=== PATIENT | female | born 1935 | race Caucasian/White ===

== ENCOUNTER 2016-05-29 11:45 | Inpatient (IN) | payer MEDICARE, MEDICAID ==
--- NOTE | 2016-05-29 12:32 | ED Physician Chart ---
Chief Complaint/HPI - Patient Information Date Seen:: 05/29/16 Time Seen:: 12:20 Chief Complaint:: cough and congestion History of Present Illness:: cough and congestion for 2-3 days. Sputum pale yellow. Allergies:: Allergies Allergy/AdvReac Type Severity Reaction Status Date / Time codeine Allergy UNKNOWN Verified 05/29/16 12:05 lithium Allergy UNKNOWN Verified 05/29/16 12:05 Penicillins [PCN] Allergy UNKNOWN Verified 05/29/16 12:05 Vitals:: Vital Signs - 8 hr 05/29/16 11:58 Temp 97.0 F HR 79 RR 18 BP 180/79 O2 Sat % 99 Historian:: Patient, EMS Review:: Nurse's Note Reviewed Review of Systems - Review of Systems General/Constitutional: No fever, No chills Skin: No skin lesions Head: No headache Eyes: No loss of vision ENT: No earache Neck: No neck pain Cardio Vascular: No chest pain Pulmonary: No SOB, Cough, Sputum GI: No nausea, No vomiting G/U: No dysuria Musculoskeletal: No bone or joint pain Endocrine: No polyuria, No polydipsia Psychiatric: No prior psych history Hematopoietic: No bruising Allergic/Immuno: No urticaria Neurological: No syncope Past Medical History - Past Medical History Obtainable: Yes Past Medical History: Seizures, Arthritis, Other (dysphagia; s/p UTI; arthritis ; insomnia; Parkinson's disease) Family History: HTN, Other (mother was an alcoholic and had hypertension) Social History: Non Smoker, Care Facility, Other (twenty or more years ago drank about 6 oz vodka per day for 4-5 years) Surgical History: other (pacemaker) Psychiatricy History: None Medication: Reviewed Family Medical History - Family Member Father History Unknown: Yes Physical Exam - Physical Examination General/Constitutional: Awake, No distress Other Gen/Cons comments:: A and O to correct month and year Head: Atraumatic Eyes: Lids, conjuctiva normal, PERRL Skin: Nl inspection ENMT: External ears, nose nl Other ENMT comments:: no lower teeth Neck: No nuchal rigidity Respiratory: Nl effort/Exclusion, Clear to Auscultation Cardio Vascular: RRR (2/6 systolic murmur) GI: No tenderness/rebounding/guarding, No organomegaly : No CVA tenderness Extremities: No tenderness or effusion Neuro/Psych: Alert/oriented, No focal deficits Other Neuro/Psych comments:: tremors right arm Misc: Normal back Labs/Radiology/EKG Results - Lab Results Results: Laboratory Results - last 24 hr 05/29/16 05/29/16 12:45 12:45 WBC 5.1 D RBC 3.79 L Hgb 12.8 Hct 36.7 MCV 97.0 MCH 33.9 H MCHC Differential 34.9 RDW 13.4 Plt Count 158 D MPV 7.9 Neutrophils (Manual) 41 Lymphocytes 52 H Monocytes 6 Eosinophils 1 Platelet Estimate ADEQUATE Platelet Morphology NORMAL RBC Morph Micro Appear NORMAL Sodium 135 L Potassium 4.3 Chloride 105 Carbon Dioxide 22.5 Anion Gap 11.8 BUN 16 Creatinine 0.8 Est GFR ( Amer) TNP Est GFR (Non-Af Amer) TNP BUN/Creatinine Ratio 20.0 Glucose 92 Calcium 9.7 - Radiology Results Results: CXR: pacemaker noted; no cardiomegaly; no infiltrate - EKG Interpretations Rhythm: ventricular pacemaker Rate: 75 ED Septic Shock - . Is Septic Shock (SBP<90, OR Lactate>4 mmol\L) present?: No - <6hrs of presentation: Vital Signs: Vital Signs - 8 hr 05/29/16 11:58 Temp 97.0 F HR 79 RR 18 BP 180/79 O2 Sat % 99 Reassessment (Disposition) - Reassessment Reassessment Condition:: Unchanged - Diagnosis Diagnosis:: exacerbation COPD; bronchitis; acute viral syndrome - Patient Disposition Admitted to:: Med/Surg Spoke to:: Andrés Stevens Admitting Medical Physician:: Andrés Stevens Condition at Disposition:: Stable, Unchanged
[2016-05-29 12:51] LABS: HEMATOCRIT 36.7 % (35.0-45.0); HEMOGLOBIN 12.8 gm/dL (11.7-16.1); MEAN CORPUSCULAR HEMOGLOBIN 33.9 pg (27.0-31.0); MEAN CORPUSCULAR HGB CONC 34.9 pg (28.0-36.0); MEAN PLATELET VOLUME 7.9 fl; RED BLOOD COUNT 3.79 Mil/cmm (3.80-5.20); RED CELL DISTRIBUTION WIDTH 13.4 % (11.5-20.0)
[2016-05-29 12:53] LABS: PLATELET COUNT 158 Th/cmm (150-400); WHITE BLOOD COUNT 5.1 Th/cmm (4.8-10.8)
[2016-05-29 13:14] LABS: ANION GAP 11.8 (7.0-16.0); BUN - UREA NITROGEN 16 mg/dL (7-25); CALCIUM SERUM 9.7 mg/dL (8.6-10.3); CARBON DIOXIDE 22.5 mEq/L (21.0-31.0); CHLORIDE 105 mEq/L (98-107); CREATININE - SERUM 0.8 mg/dL (0.6-1.2); GLUCOSE 92 mg/dL (70-105); POTASSIUM SERUM 4.3 mEq/L (3.5-5.1); SODIUM SERUM 135 mEq/L (136-145)
[2016-05-29 13:17] LABS: EOSINOPHIL 1 % (0-5); NEUTROPHILS 41 % (40-80); PLATELET ESTIMATE ADEQUATE (NORMAL); PLATELET MORPHOLOGY NORMAL (NORMAL); TOTAL CELLS COUNTED 100
[2016-05-29] MEDS ORDERED: Magnesium Hydroxide (MOM) 30 mL UDC PO PRN (14:32)
[2016-05-29] MEDS ORDERED: TEMAZEPAM 15 MG PO PRN (14:32)
[2016-05-29] MEDS ORDERED: guaiFENesin 200 MG/10 ML UDC PO PRN (14:35)
--- NOTE | 2016-05-29 14:41 | Internal Medicine Prog Note ---
Internal Medicine Subjective - Subjective Service Date: 05/29/16 ([facility] [id number]) Internal Medicine Objective - Results Result Diagrams: 05/29/16 12:45 05/29/16 12:45 Recent Labs: Laboratory Last Values WBC 5.1 Th/cmm (4.8-10.8) D 05/29/16 12:45 RBC 3.79 Mil/cmm (3.80-5.20) L 05/29/16 12:45 Hgb 12.8 gm/dL (11.7-16.1) 05/29/16 12:45 Hct 36.7 % (35.0-45.0) 05/29/16 12:45 MCV 97.0 fl (81-100) 05/29/16 12:45 MCH 33.9 pg (27.0-31.0) H 05/29/16 12:45 MCHC Differential 34.9 pg (28.0-36.0) 05/29/16 12:45 RDW 13.4 % (11.5-20.0) 05/29/16 12:45 Plt Count 158 Th/cmm (150-400) D 05/29/16 12:45 MPV 7.9 fl 05/29/16 12:45 Neutrophils (Manual) 41 % (40-80) 05/29/16 12:45 Lymphocytes 52 % (20-50) H 05/29/16 12:45 Monocytes 6 % (2-10) 05/29/16 12:45 Eosinophils 1 % (0-5) 05/29/16 12:45 Platelet Estimate ADEQUATE (NORMAL) 05/29/16 12:45 Platelet Morphology NORMAL (NORMAL) 05/29/16 12:45 RBC Morph Micro Appear NORMAL (NORMAL) 05/29/16 12:45 Sodium 135 mEq/L (136-145) L 05/29/16 12:45 Potassium 4.3 mEq/L (3.5-5.1) 05/29/16 12:45 Chloride 105 mEq/L (98-107) 05/29/16 12:45 Carbon Dioxide 22.5 mEq/L (21.0-31.0) 05/29/16 12:45 Anion Gap 11.8 (7.0-16.0) 05/29/16 12:45 BUN 16 mg/dL (7-25) 05/29/16 12:45 Creatinine 0.8 mg/dL (0.6-1.2) 05/29/16 12:45 Est GFR ( Amer) TNP 05/29/16 12:45 Est GFR (Non-Af Amer) TNP 05/29/16 12:45 BUN/Creatinine Ratio 20.0 05/29/16 12:45 Glucose 92 mg/dL (70-105) 05/29/16 12:45 Calcium 9.7 mg/dL (8.6-10.3) 05/29/16 12:45 Valproic Acid 72.3 ug/mL (50.0-100.0) 05/29/16 12:45 - Physical Exam Vitals and I&O: Vital Signs Temp 98 F 05/29/16 12:33 Pulse 88 05/29/16 12:33 Resp 16 05/29/16 12:33 BP 156/63 05/29/16 12:33 Pulse Ox 99 05/29/16 12:33 Active Medications: Current Medications Acetaminophen (Tylenol) 650 mg PO Q6H PRN PRN Reason: Pain Stop: 07/28/16 14:31 Acetaminophen/Hydrocodone Bitart ([place] 5mg/325mg) 1 tab PO Q6H PRN PRN Reason: body pain Stop: 07/28/16 14:31 Albuterol Sulfate (Albuterol 2.5mg/3ml Neb Ud) 2.5 mg IH QID [facility] Stop: 07/28/16 16:59 Amantadine HCl (Symmetrel) 100 mg PO DAILY [facility] Stop: 07/29/16 08:59 Ascorbic Acid (Vitamin C) 500 mg PO DAILY [facility] Stop: 07/29/16 08:59 Docusate Sodium (Colace) 100 mg PO BID [facility] Stop: 07/28/16 16:59 Ferrous Sulfate (Iron) 325 mg PO DAILY [facility] Stop: 07/29/16 08:59 Gabapentin (Neurontin) 300 mg PO QID [facility] Stop: 07/28/16 16:59 Guaifenesin (Robitussin) 100 mg PO Q4H PRN PRN Reason: Cough or Congestion Stop: 07/28/16 14:34 Hydralazine HCl (Apresoline) 25 mg PO TID [facility] Stop: 07/28/16 20:59 Ipratropium [place] (Atrovent Neb 0.5mg/2.5ml) 0.5 mg IH QID [facility] Stop: 07/28/16 16:59 Lorazepam (Ativan) 0.5 mg PO Q6H PRN; Protocol PRN Reason: Anxiety Stop: 07/28/16 14:31 Magnesium Hydroxide (Milk Of Magnesia) 30 ml PO DAILY PRN PRN Reason: Constipation Stop: 07/28/16 14:31 Miscellaneous (Dextran 70/Hypromellose [Artificial Tears]) 1 each EACH EYE QID [facility] Stop: 07/28/16 16:59 Miscellaneous (Valproic Acid [Depakene]) 500 mg PO TID [facility] Stop: 07/28/16 20:59 Miscellaneous (Tobramycin/Dexamethasone [Tobradex St Eye Drops]) 5 ml .ROUTE QID [facility] Stop: 07/28/16 16:59 Miscellaneous (Temazepam [Restoril]) 15 mg PO HS PRN PRN Reason: Insomnia Miscellaneous (Saccharomyces Boulardii [Florastor]) 250 mg PO BID [facility] Stop: 07/28/16 16:59 Ondansetron HCl (Zofran) 4 mg IV Q8H PRN PRN Reason: Nausea / Vomiting Stop: 07/28/16 14:34 Quetiapine Fumarate (Seroquel) 200 mg PO HS [facility] PRN Reason: Protocol Stop: 07/28/16 20:59 Internal Medicine Assmt/Plan - Assessment Assessment: copd exacerbation hyponatremia htn convulsions major depressive disorder
[2016-05-29] MEDS ORDERED: D5-0.9%NS 1,000 ML IV SCH (14:45)
[2016-05-29] MEDS ORDERED: Levofloxacin 500mg/100mL 500 MG/100 ML BAG IV SCH (15:15)
--- NOTE | 2016-05-29 15:40 | Diagnostic Imaging Report ---
Portable chest x-ray HISTORY: Cough The overall heart size is difficult to assess with portable technique. Cardiac pacemaker lead wires project over the right atrium and right ventricle. A vascular catheter tip is in the region of the superior vena cava. No definite acute focal pulmonary parenchymal processes. Surgical fixation plate traverses the right humeral shaft. IMPRESSION: 1. No acute focal pulmonary processes
[2016-05-29] MEDS ORDERED: VTE Chemical Prophylaxis Screen/Admission MC PRN (16:00)
[2016-05-29] MEDS ORDERED: Non-Formulary Item 1 EA (Dextran 70/Hypromellose [Artificial Tears] 1 EACH) EACH EYE SCH (17:00)
[2016-05-29] MEDS ORDERED: TOBRAMYCIN SCH (17:00)
[2016-05-29] MEDS ORDERED: Non-Formulary Item 1 EA (Saccharomyces Boulardii [Florastor] 250 MG) PO SCH (17:00)
[2016-05-29] MEDS ORDERED: DEXAMETHASONE SCH (17:00)
--- NOTE | 2016-05-29 17:37 | History & Physical ---
CHIEF COMPLAINT: Cough and congestion. HISTORY OF PRESENT ILLNESS: This is a 80-year-old female who is a resident from [facility] who has been having a 3-day history of cough and congestion associated with pale yellow secretion. The patient denied any fevers or any chills and denied any shortness of breath. For this reason, the patient is now admitted to the med/surg unit. PAST MEDICAL HISTORY: Hypertension, Parkinson, polyneuropathy, major depressive disorder, convulsion, muscle weakness, abnormal posture. FAMILY HISTORY: Noncontributory. SOCIAL HISTORY: The patient resides at a longterm, requiring 24-hour nursing care. ALLERGIES: CODEINE, LITHIUM AND PENICILLIN. SURGICAL HISTORY: Pacemaker and MediPort. MEDICATIONS: Please see medication reconciliation sheet. REVIEW OF SYSTEMS: GENERAL: Denies any fevers, any chills. CARDIOVASCULAR: Denies any chest pain. RESPIRATORY: Denies any shortness of breath, but complains of cough and congestion. GASTROINTESTINAL: Denies any nausea or vomiting. GENITOURINARY: Denies any dysuria. All other systems are reviewed by me and are negative. PHYSICAL EXAMINATION: GENERAL: The patient is awake with confusion in mild distress. VITAL SIGNS: Temperature 98, heart rate of 88, blood pressure 156/63, respirations 16, O2 99%. HEENT: Head; normocephalic, atraumatic. NECK: Supple. No mass. LUNGS: Rhonchi bilaterally upon auscultation. SKIN: Regular rate and rhythm. No murmurs or gallops. ABDOMEN: Soft, nontender, nondistended. Positive bowel sounds in all 4 quadrants. LABORATORY DATA: WBC 5.1, H and H 12.8 and 36.7, platelet of 150. Sodium 135, potassium 4.3, chloride 105, carbon dioxide 22.5, BUN 16, creatinine 0.8. Valproic acid 72.3. ASSESSMENT: 1. Chronic obstructive pulmonary disease exacerbation. 2. Hyponatremia. 3. Hypertension. 4. Major depressive disorder. 5. Convulsion. 6. Muscle weakness. PLAN: Since the patient is ALLERGIC TO PENICILLIN, the patient will be put on Levaquin, bronchodilators. We will monitor the patient's CBC and BMP. We will replace the patient's electrolytes levels. We will get Dr. Her on the case. We will continue to monitor the patient. [facility]# [id number]
[2016-05-29] MEDS: Hydrocodone/APAP 5mg/325mg Tab PO PRN ×2 (18:13→22:59)
[2016-05-29] MEDS: Dexamethasone/Tobramycin Ophth Susp 2.5 mL Bottle EACH EYE SCH (18:13)
[2016-05-29] MEDS: Polyvinyl Alcohol Ophth Soln 15 mL Bottle EACH EYE SCH ×3 (18:14→21:00)
[2016-05-29] MEDS: Ipratropium Neb 0.5 mg/2.5 mL UD IH SCH (19:15)
[2016-05-29] MEDS: Albuterol Nebulizer 2.5mg/3mL IH SCH (19:16)
[2016-05-29] MEDS ORDERED: VALPROIC ACID 500 MG PO SCH (21:00)
--- NOTE | 2016-05-30 00:09 | Admit Criteria Form ---
Admit Criteria Forms - Admit Criteria Diagnosis: COPD Clinical Indications for Admission to Inpatient Care (Place 'X' for any and all applicable criteria): Admission is indicated for ANY ONE of the following (1)(2)(3): [X ]I. Acute exacerbation by high-risk comorbidity (e.g., pneumonia, dysrhythmia, heart failure, pleural effusion, pneumothorax) or severe underlying COPD (e.g., steroid dependent) [ ]II. Inpatient admission required rather than observation care (see Chronic Obstructive Pulmonary Disease: Observation Care) because of ANY ONE of the following: [ ]a) New or pre-existing signs or symptoms of COPD (eg, dyspnea or Tachypnea at rest or with minimal activity) that persist despite outpatient and observation care treatment [ ]b) New-onset hypoxemia (room air SaO2 less than 90%, PO2 less than 60 mm Hg (8.0 kPa)) that persists despite outpatient and observation care treatment [ ]c) Worsening of pre-existing hypoxemia (eg, new or increased requirement for supplemental oxygen to maintain oxygenation at baseline level) that persists despite outpatient and observation care treatment, with oxygen treatment needs performable only in acute inpatient setting [ ]d) Hypercarbia (PCO2 greater than 40 mm Hg (5.3 kPa))-induced respiratory acidosis (pH less than 7.35) that persists despite outpatient and observation care treatment [ ]e) Supplemental oxygen or respiratory treatments for over 24 hours that are performable only in acute inpatient setting [ ]f) Chest tube placement with active evacuation (e.g., suction, drainage) (5) [ ]g) Other condition, treatment or monitoring requiring inpatient admission [ ]III. Planned invasive surgical or diagnostic procedures requiring acute- care hospitalization [ ]IV. Acute respiratory failure (e.g., uncompensated hypercarbia, severe hypoxemia) [ ]V. Severe comorbid condition (e.g., severe steroid myopathy, acute vertebral fracture) that has acutely worsened pulmonary function [ ]. Confusion state, lethargy, obtundation, stupor or coma Extended stay beyond goal length of stay may be needed for (31)(32): [ ]a ) Respiratory Failure. [ ]b) Severe or persisting hypoxemia or hypercarbia [ ]c) Severe or persistent dyspnea [ ]d) Comorbidities (e.g. chronic heart failure, atrial fibrillation with rapid response, pneumonia) [ ]e) Malnutrition The original [facility] content created by [facility] has been revised. The portions of the content which have been revised are identified through the use of italic text or in bold, and [facility] has neither reviewed nor approved the modified material. All other unmodified content is copyright [facility]. Please see references footnoted in the original [facility] edition 2016 Admit Criteria Met?: Yes
[2016-05-30] MEDS: Dexamethasone/Tobramycin Ophth Susp 2.5 mL Bottle EACH EYE SCH ×4 (00:11→20:00)
[2016-05-30] MEDS: Hydrocodone/APAP 5mg/325mg Tab PO PRN ×3 (05:56→20:00)
[2016-05-30 07:15] LABS: HEMOGLOBIN 11.1 gm/dL (11.7-16.1); MEAN CORPUSCULAR HEMOGLOBIN 33.7 pg (27.0-31.0); MEAN CORPUSCULAR HGB CONC 34.7 pg (28.0-36.0); MEAN PLATELET VOLUME 8.4 fl; PLATELET COUNT 156 Th/cmm (150-400); RED BLOOD COUNT 3.29 Mil/cmm (3.80-5.20); RED CELL DISTRIBUTION WIDTH 13.4 % (11.5-20.0); WHITE BLOOD COUNT 5.5 Th/cmm (4.8-10.8)
[2016-05-30] MEDS: Albuterol Nebulizer 2.5mg/3mL IH SCH ×2 (07:17→11:19)
[2016-05-30] MEDS: Ipratropium Neb 0.5 mg/2.5 mL UD IH SCH ×3 (07:18→11:22)
[2016-05-30 07:35] LABS: HEMATOCRIT 31.9 % (35.0-45.0)
[2016-05-30 07:43] LABS: ANION GAP 10.6 (7.0-16.0); BUN - UREA NITROGEN 14 mg/dL (7-25); CALCIUM SERUM 9.5 mg/dL (8.6-10.3); CARBON DIOXIDE 25.4 mEq/L (21.0-31.0); CHLORIDE 102 mEq/L (98-107); GLUCOSE 88 mg/dL (70-105); SODIUM SERUM 134 mEq/L (136-145)
[2016-05-30] MEDS: Polyvinyl Alcohol Ophth Soln 15 mL Bottle EACH EYE SCH ×3 (09:15→22:02)
[2016-05-30] MEDS: Multivitamin w/ Minerals Tab PO SCH (09:15)
[2016-05-30] MEDS: Lactobacillus Rhamnosus 10 Billion CFU Capsule PO SCH (09:16)
[2016-05-30] MEDS: Ferrous Sulfate 325 MG TAB PO SCH (09:18)
--- NOTE | 2016-05-30 09:40 | Diagnostic Imaging Report ---
CHEST X-RAY: AP view INDICATION: Shortness of breath COMPARISON: Chest x-ray 05/29/2016 FINDINGS: Support devices are stable. No focal consolidation, effusions or evidence of stephanie CHF. Left basal subsegmental atelectasis versus scarring is noted. Borderline prominent heart is noted with atherosclerosis. IMPRESSION: No focal consolidation or radiographic evidence of CHF Left basal subsegmental atelectasis versus scarring.
[2016-05-30 10:06] LABS: NEUTROPHILS 23 % (40-80); TOTAL CELLS COUNTED 100
[2016-05-30 10:07] LABS: EOSINOPHIL 2 % (0-5); PLATELET ESTIMATE ADEQUATE (NORMAL); PLATELET MORPHOLOGY NORMAL (NORMAL)
--- NOTE | 2016-05-30 13:02 | Internal Medicine Prog Note ---
Internal Medicine Subjective - Subjective Service Date: 05/30/16 Patient seen and examined:: with staff Patient is:: awake Per staff patient is:: no adverse event Internal Medicine Objective - Results Result Diagrams: 05/30/16 06:00 05/30/16 06:00 Recent Labs: Laboratory Last Values WBC 5.5 Th/cmm (4.8-10.8) 05/30/16 06:00 RBC 3.29 Mil/cmm (3.80-5.20) L 05/30/16 06:00 Hgb 11.1 gm/dL (11.7-16.1) L 05/30/16 06:00 Hct 31.9 % (35.0-45.0) L D 05/30/16 06:00 MCV 97.0 fl (81-100) 05/30/16 06:00 MCH 33.7 pg (27.0-31.0) H 05/30/16 06:00 MCHC Differential 34.7 pg (28.0-36.0) 05/30/16 06:00 RDW 13.4 % (11.5-20.0) 05/30/16 06:00 Plt Count 156 Th/cmm (150-400) 05/30/16 06:00 MPV 8.4 fl 05/30/16 06:00 Neutrophils (Manual) 23 % (40-80) L 05/30/16 06:00 Lymphocytes 69 % (20-50) H 05/30/16 06:00 Monocytes 6 % (2-10) 05/30/16 06:00 Eosinophils 2 % (0-5) 05/30/16 06:00 Platelet Estimate ADEQUATE (NORMAL) 05/30/16 06:00 Platelet Morphology NORMAL (NORMAL) 05/30/16 06:00 RBC Morph Micro Appear NORMAL (NORMAL) 05/30/16 06:00 Sodium 134 mEq/L (136-145) L 05/30/16 06:00 Potassium 4.0 mEq/L (3.5-5.1) 05/30/16 06:00 Chloride 102 mEq/L (98-107) 05/30/16 06:00 Carbon Dioxide 25.4 mEq/L (21.0-31.0) 05/30/16 06:00 Anion Gap 10.6 (7.0-16.0) 05/30/16 06:00 BUN 14 mg/dL (7-25) 05/30/16 06:00 Creatinine 1.0 mg/dL (0.6-1.2) 05/30/16 06:00 Est GFR ( Amer) TNP 05/30/16 06:00 Est GFR (Non-Af Amer) TNP 05/30/16 06:00 BUN/Creatinine Ratio 14.0 05/30/16 06:00 Glucose 88 mg/dL (70-105) 05/30/16 06:00 Calcium 9.5 mg/dL (8.6-10.3) 05/30/16 06:00 Valproic Acid 72.3 ug/mL (50.0-100.0) 05/29/16 12:45 - Physical Exam Vitals and I&O: Vital Signs Temp 97.4 F 05/30/16 12:17 Pulse 62 05/30/16 12:17 Resp 19 05/30/16 08:12 BP 133/64 05/30/16 12:17 Pulse Ox 18 05/30/16 12:17 Intake & Output 05/29/16 05/30/16 05/30/16 18:59 06:59 18:59 Intake Total 700 Balance 700 Intake: Intake, IV Amount 100 Levofloxacin 500mg/100mL 100 500 mg In 100 ml @ 100 mls/hr IV Q24HR [facility] Rx#: [id number] Oral 600 Other: # Voids 1 Active Medications: Current Medications Acetaminophen (Tylenol) 650 mg PO Q4HR PRN PRN Reason: Pain or Fever >101 Stop: 07/28/16 14:42 Last Admin: 05/30/16 09:11 Dose: 650 mg Acetaminophen/Hydrocodone Bitart ([place] 5mg/325mg) 1 tab PO Q6H PRN PRN Reason: body pain Stop: 07/28/16 14:31 Last Admin: 05/30/16 11:54 Dose: 1 tab Albuterol Sulfate (Albuterol 2.5mg/3ml Neb Ud) 2.5 mg IH QID [facility] Stop: 07/28/16 16:59 Last Admin: 05/30/16 11:19 Dose: Not Given Amantadine HCl (Symmetrel) 100 mg PO DAILY [facility] Stop: 07/29/16 08:59 Last Admin: 05/30/16 09:17 Dose: 100 mg Artificial Tears (Artificial Tears Ophth Soln) 1 drop EACH EYE QID [facility] Stop: 07/28/16 16:59 Last Admin: 05/30/16 09:15 Dose: 1 drop Ascorbic Acid (Vitamin C) 500 mg PO DAILY [facility] Stop: 07/29/16 08:59 Last Admin: 05/30/16 09:17 Dose: Not Given Clonidine HCl (Catapres) 0.1 mg PO Q6HR PRN PRN Reason: SBP GREATER THAN 160 Stop: 07/28/16 14:42 Divalproex Sodium (Depakote Dr) 500 mg PO TID [facility] Stop: 07/28/16 20:59 Last Admin: 05/30/16 09:16 Dose: 500 mg Docusate Sodium (Colace) 100 mg PO BID [facility] Stop: 07/28/16 16:59 Last Admin: 05/30/16 09:17 Dose: 100 mg Ferrous Sulfate (Iron) 325 mg PO DAILY [facility] Stop: 07/29/16 08:59 Last Admin: 05/30/16 09:18 Dose: 325 mg Gabapentin (Neurontin) 300 mg PO QID [facility] Stop: 07/28/16 16:59 Last Admin: 05/30/16 09:18 Dose: 300 mg Guaifenesin (Robitussin) 100 mg PO Q4H PRN PRN Reason: Cough or Congestion Stop: 07/28/16 14:34 Heparin Sodium (Porcine) (Heparin) 5,000 units SUBQ Q12HR [facility] Stop: 07/28/16 20:59 Last Admin: 05/30/16 09:16 Dose: Not Given Hydralazine HCl (Apresoline) 25 mg PO TID [facility] Stop: 07/28/16 20:59 Last Admin: 05/30/16 09:16 Dose: Not Given Dextrose/Sodium Chloride (D5-0.9%Ns) 1,000 mls @ 50 mls/hr IV .Q20H [facility] Stop: 07/28/16 14:44 Last Admin: 05/29/16 18:12 Dose: 50 mls/hr Ipratropium Hospers (Atrovent Neb 0.5mg/2.5ml) 0.5 mg IH QID [facility] Stop: 07/28/16 16:59 Last Admin: 05/30/16 11:22 Dose: Not Given Lactobacillus Rhamnosus (Culturelle) 1 each PO DAILY [facility] Stop: 07/29/16 08:59 Last Admin: 05/30/16 09:16 Dose: Not Given Lorazepam (Ativan) 0.5 mg PO Q6H PRN; Protocol PRN Reason: Anxiety Stop: 07/28/16 14:31 Last Admin: 05/29/16 23:52 Dose: 0.5 mg Magnesium Hydroxide (Milk Of Magnesia) 30 ml PO DAILY PRN PRN Reason: Constipation Stop: 07/28/16 14:31 Miscellaneous (Vte [employer] Prophylaxis Screen/ Admission) 1 ea [facility] PRN PRN PRN Reason: PROTOCOL Stop: 07/28/16 15:59 Ondansetron HCl (Zofran) 4 mg IV Q8H PRN PRN Reason: Nausea / Vomiting Stop: 07/28/16 14:34 Quetiapine Fumarate (Seroquel) 200 mg PO HS [facility] PRN Reason: Protocol Stop: 07/28/16 20:59 Last Admin: 05/29/16 20:31 Dose: 200 mg Sertraline HCl (Zoloft) 25 mg PO DAILY [facility] PRN Reason: Protocol Stop: 07/30/16 08:59 Sodium Chloride (Saline Flush) 10 ml IV QSHIFT [facility] Stop: 07/28/16 19:59 Last Admin: 05/30/16 10:58 Dose: Not Given Temazepam (Restoril) 15 mg PO HS PRN PRN Reason: SLEEP Stop: 07/28/16 15:23 Last Admin: 05/29/16 22:59 Dose: 15 mg Tobramycin/Dexamethasone (Tobradex 0.1%-0.3% Ophth Susp 2.5ml) 1 drop EACH EYE QID [facility] Stop: 07/28/16 16:59 Last Admin: 05/30/16 09:16 Dose: 1 drop General: alert Neck: Supple Lungs: CTAB Cardiovascular: RRR, Normal S1, Normal S2, without murmur Abdomen: soft non-tender Neurological: no change Internal Medicine Assmt/Plan - Assessment Assessment: copd exacerbation hyponatremia htn convulsions major depressive disorder - Plan Plan: dc elmer cason
[2016-05-31] MEDS: Hydrocodone/APAP 5mg/325mg Tab PO PRN ×3 (06:05→18:34)
[2016-05-31] MEDS: Ipratropium Neb 0.5 mg/2.5 mL UD HHN SCH ×5 (08:26→19:28)
[2016-05-31] MEDS: Albuterol Nebulizer 2.5mg/3mL HHN SCH ×4 (08:26→19:28)
[2016-05-31] MEDS: Dexamethasone/Tobramycin Ophth Susp 2.5 mL Bottle EACH EYE SCH ×5 (08:59→21:05)
[2016-05-31] MEDS: Polyvinyl Alcohol Ophth Soln 15 mL Bottle EACH EYE SCH ×4 (09:00→21:05)
[2016-05-31] MEDS: Multivitamin w/ Minerals Tab PO SCH (09:01)
[2016-05-31] MEDS: Ferrous Sulfate 325 MG TAB PO SCH (09:01)
[2016-05-31] MEDS: Lactobacillus Rhamnosus 10 Billion CFU Capsule PO SCH (09:01)
--- NOTE | 2016-05-31 16:50 | Internal Medicine Prog Note ---
Internal Medicine Subjective - Subjective Service Date: 05/31/16 Patient seen and examined:: with staff Patient is:: awake Per staff patient is:: no adverse event Internal Medicine Objective - Results Result Diagrams: 05/30/16 06:00 05/30/16 06:00 Recent Labs: Laboratory Last Values WBC 5.5 Th/cmm (4.8-10.8) 05/30/16 06:00 RBC 3.29 Mil/cmm (3.80-5.20) L 05/30/16 06:00 Hgb 11.1 gm/dL (11.7-16.1) L 05/30/16 06:00 Hct 31.9 % (35.0-45.0) L D 05/30/16 06:00 MCV 97.0 fl (81-100) 05/30/16 06:00 MCH 33.7 pg (27.0-31.0) H 05/30/16 06:00 MCHC Differential 34.7 pg (28.0-36.0) 05/30/16 06:00 RDW 13.4 % (11.5-20.0) 05/30/16 06:00 Plt Count 156 Th/cmm (150-400) 05/30/16 06:00 MPV 8.4 fl 05/30/16 06:00 Neutrophils (Manual) 23 % (40-80) L 05/30/16 06:00 Lymphocytes 69 % (20-50) H 05/30/16 06:00 Monocytes 6 % (2-10) 05/30/16 06:00 Eosinophils 2 % (0-5) 05/30/16 06:00 Platelet Estimate ADEQUATE (NORMAL) 05/30/16 06:00 Platelet Morphology NORMAL (NORMAL) 05/30/16 06:00 RBC Morph Micro Appear NORMAL (NORMAL) 05/30/16 06:00 Sodium 134 mEq/L (136-145) L 05/30/16 06:00 Potassium 4.0 mEq/L (3.5-5.1) 05/30/16 06:00 Chloride 102 mEq/L (98-107) 05/30/16 06:00 Carbon Dioxide 25.4 mEq/L (21.0-31.0) 05/30/16 06:00 Anion Gap 10.6 (7.0-16.0) 05/30/16 06:00 BUN 14 mg/dL (7-25) 05/30/16 06:00 Creatinine 1.0 mg/dL (0.6-1.2) 05/30/16 06:00 Est GFR ( Amer) TNP 05/30/16 06:00 Est GFR (Non-Af Amer) TNP 05/30/16 06:00 BUN/Creatinine Ratio 14.0 05/30/16 06:00 Glucose 88 mg/dL (70-105) 05/30/16 06:00 Calcium 9.5 mg/dL (8.6-10.3) 05/30/16 06:00 Valproic Acid 72.3 ug/mL (50.0-100.0) 05/29/16 12:45 - Physical Exam Vitals and I&O: Vital Signs Temp 98.2 F 05/31/16 11:50 Pulse 79 05/31/16 13:29 Resp 17 05/31/16 11:50 BP 124/69 05/31/16 13:29 Pulse Ox 96 05/31/16 11:50 Active Medications: Current Medications Acetaminophen (Tylenol) 650 mg PO Q4HR PRN PRN Reason: Pain or Fever >101 Stop: 07/28/16 14:42 Last Admin: 05/31/16 16:04 Dose: 650 mg Acetaminophen/Hydrocodone Bitart ([place] 5mg/325mg) 1 tab PO Q6H PRN PRN Reason: body pain Stop: 07/28/16 14:31 Last Admin: 05/31/16 12:33 Dose: 1 tab Albuterol Sulfate (Albuterol 2.5mg/3ml Neb Ud) 2.5 mg HHN QID [facility] Stop: 07/28/16 16:59 Last Admin: 05/31/16 15:16 Dose: Not Given Amantadine HCl (Symmetrel) 100 mg PO DAILY [facility] Stop: 07/29/16 08:59 Last Admin: 05/31/16 08:54 Dose: 100 mg Artificial Tears (Artificial Tears Ophth Soln) 1 drop EACH EYE QID [facility] Stop: 07/28/16 16:59 Last Admin: 05/31/16 16:45 Dose: Not Given Ascorbic Acid (Vitamin C) 500 mg PO DAILY [facility] Stop: 07/29/16 08:59 Last Admin: 05/31/16 09:00 Dose: Not Given Azithromycin (Zithromax) 500 mg PO DAILY [facility] Stop: 06/02/16 09:01 Last Admin: 05/31/16 08:53 Dose: 500 mg Clonidine HCl (Catapres) 0.1 mg PO Q6HR PRN PRN Reason: SBP GREATER THAN 160 Stop: 07/28/16 14:42 Divalproex Sodium (Depakote Dr) 500 mg PO TID [facility] Stop: 07/28/16 20:59 Last Admin: 05/31/16 13:29 Dose: 500 mg Docusate Sodium (Colace) 100 mg PO BID [facility] Stop: 07/28/16 16:59 Last Admin: 05/31/16 16:44 Dose: 100 mg Ferrous Sulfate (Iron) 325 mg PO DAILY [facility] Stop: 07/29/16 08:59 Last Admin: 05/31/16 09:01 Dose: Not Given Gabapentin (Neurontin) 300 mg PO QID [facility] Stop: 07/28/16 16:59 Last Admin: 05/31/16 16:44 Dose: 300 mg Guaifenesin (Robitussin) 100 mg PO Q4H PRN PRN Reason: Cough or Congestion Stop: 07/28/16 14:34 Last Admin: 05/30/16 22:24 Dose: 100 mg Heparin Sodium (Porcine) (Heparin) 5,000 units SUBQ Q12HR [facility] Stop: 07/28/16 20:59 Last Admin: 05/31/16 08:42 Dose: 5,000 units Hydralazine HCl (Apresoline) 25 mg PO TID [facility] Stop: 07/28/16 20:59 Last Admin: 05/31/16 13:29 Dose: 25 mg Dextrose/Sodium Chloride (D5-0.9%Ns) 1,000 mls @ 50 mls/hr IV .Q20H [facility] Stop: 07/28/16 14:44 Last Admin: 05/29/16 18:12 Dose: 50 mls/hr Ipratropium [place] (Atrovent Neb 0.5mg/2.5ml) 0.5 mg HHN QID [facility] Stop: 07/28/16 16:59 Last Admin: 05/31/16 15:17 Dose: Not Given Lactobacillus Rhamnosus (Culturelle) 1 each PO DAILY [facility] Stop: 07/29/16 08:59 Last Admin: 05/31/16 09:01 Dose: Not Given Lorazepam (Ativan) 0.5 mg PO Q6H PRN; Protocol PRN Reason: Anxiety Stop: 07/28/16 14:31 Last Admin: 05/30/16 22:12 Dose: 0.5 mg Magnesium Hydroxide (Milk Of Magnesia) 30 ml PO DAILY PRN PRN Reason: Constipation Stop: 07/28/16 14:31 Miscellaneous (Vte Chemical Prophylaxis Screen/ Admission) 1 ea [facility] PRN PRN PRN Reason: PROTOCOL Stop: 07/28/16 15:59 Mupirocin (Bactroban Oint) 1 appl NS BID [facility] Stop: 06/05/16 17:01 Ondansetron HCl (Zofran) 4 mg IV Q8H PRN PRN Reason: Nausea / Vomiting Stop: 07/28/16 14:34 Quetiapine Fumarate (Seroquel) 200 mg PO HS [facility] PRN Reason: Protocol Stop: 07/28/16 20:59 Last Admin: 05/30/16 22:03 Dose: 200 mg Sertraline HCl (Zoloft) 25 mg PO DAILY [facility] PRN Reason: Protocol Stop: 07/30/16 08:59 Last Admin: 05/31/16 08:52 Dose: 25 mg Sodium Chloride (Saline Flush) 10 ml IV QSHIFT [facility] Stop: 07/28/16 19:59 Last Admin: 05/31/16 09:00 Dose: Not Given Temazepam (Restoril) 15 mg PO HS PRN PRN Reason: SLEEP Stop: 07/28/16 15:23 Last Admin: 05/29/16 22:59 Dose: 15 mg Tobramycin/Dexamethasone (Tobradex 0.1%-0.3% Ophth Susp 2.5ml) 1 drop EACH EYE QID [facility] Stop: 07/28/16 16:59 Last Admin: 05/31/16 16:45 Dose: 1 drop General: alert HEENT: NC/AT, PERRLA Neck: Supple Lungs: CTAB Cardiovascular: RRR, Normal S1, Normal S2, without murmur Abdomen: soft non-tender Internal Medicine Assmt/Plan - Assessment Assessment: copd exacerbation hyponatremia htn convulsions major depressive disorder - Plan Plan: TRANSFER TO [facility] WHEN BED AVAILABLE
[2016-06-01 05:43] LABS: HEMATOCRIT 34.6 % (35.0-45.0); HEMOGLOBIN 11.8 gm/dL (11.7-16.1); MEAN CELL VOLUME 98.1 fl (81-100); MEAN CORPUSCULAR HEMOGLOBIN 33.5 pg (27.0-31.0); MEAN CORPUSCULAR HGB CONC 34.2 pg (28.0-36.0); MEAN PLATELET VOLUME 8.1 fl; PLATELET COUNT 168 Th/cmm (150-400); RED BLOOD COUNT 3.53 Mil/cmm (3.80-5.20); RED CELL DISTRIBUTION WIDTH 13.3 % (11.5-20.0)
[2016-06-01 06:00] LABS: ANION GAP 9.5 (7.0-16.0); BUN - UREA NITROGEN 19 mg/dL (7-25); BUN/CREATININE RATIO 23.8; CALCIUM SERUM 9.4 mg/dL (8.6-10.3); CHLORIDE 100 mEq/L (98-107); CREATININE - SERUM 0.8 mg/dL (0.6-1.2); GLUCOSE 92 mg/dL (70-105); POTASSIUM SERUM 3.5 mEq/L (3.5-5.1); SODIUM SERUM 131 mEq/L (136-145)
[2016-06-01] MEDS: Ipratropium Neb 0.5 mg/2.5 mL UD HHN SCH ×2 (08:05→12:03)
[2016-06-01] MEDS: Albuterol Nebulizer 2.5mg/3mL HHN SCH ×2 (08:05→12:03)
[2016-06-01] MEDS: Lactobacillus Rhamnosus 10 Billion CFU Capsule PO SCH (09:08)
[2016-06-01] MEDS: Multivitamin w/ Minerals Tab PO SCH (09:08)
[2016-06-01] MEDS: Ferrous Sulfate 325 MG TAB PO SCH (09:08)
[2016-06-01 10:57] LABS: EOSINOPHIL 4 % (0-5); NEUTROPHILS 29 % (40-80); TOTAL CELLS COUNTED 100
[2016-06-01 10:58] LABS: PLATELET ESTIMATE ADEQUATE (NORMAL); PLATELET MORPHOLOGY NORMAL (NORMAL)
[2016-06-01] MEDS: Dexamethasone/Tobramycin Ophth Susp 2.5 mL Bottle EACH EYE SCH (11:45)
[2016-06-01] MEDS: Polyvinyl Alcohol Ophth Soln 15 mL Bottle EACH EYE SCH (11:45)
[2016-06-01] MEDS: Hydrocodone/APAP 5mg/325mg Tab PO PRN (12:17)
--- NOTE | 2016-07-02 02:18 | Discharge Summary ---
FINAL DIAGNOSES: Chronic obstructive pulmonary disease exacerbation, hyponatremia, ____hypertension, major depressive disorder, convulsion, muscle weakness. HISTORY OF PRESENT ILLNESS: A 80-year-old female who is a resident at [facility] who has been having a 3-day history of cough and congestion associated with pale yellow secretion. PHYSICAL EXAMINATION: GENERAL: The patient is well developed, well nourished, no acute distress. VITAL SIGNS: Stable. HEENT: Normocephalic, atraumatic. NECK: Supple. No mass. LUNGS: Clear. CARDIOVASCULAR: Regular rate and rhythm, no murmurs or gallops. ABDOMEN: Soft, nontender, nondistended. Positive bowel sounds in all 4 quadrants. HOSPITAL COURSE: During the hospital stay, the patient was admitted to the med/surg unit. The patient was kept on IV Levaquin and bronchodilator, supplements of oxygen as well. The patient had Dr. Her on the case. The patient's CBC, BMP were being monitored. The patient had a chest x-ray done and the impression is no focal consolidation. The patient later then stabilized and was stable for discharge. CONDITION UPON DISCHARGE: Fair. DISPOSITION: [facility]. JOB# [id number]
== END 2016-06-01 15:30 | DRG 191 ==
LOC: ER 11:45 → MSI 13:38 → UNDODISIN 05-30 15:27 → MSI 05-30 20:31
PROVIDERS: ADMIT Internal Medicine; ATTEND Internal Medicine
PROC: 02HV33Z Insertion of Infusion Device into Superior Vena Cava, Percutaneous Approach (ICD-10-PCS; principal; 2016-05-29)
DX: J44.1 Chronic obstructive pulmonary disease with (acute) exacerbation (principal); E87.1 Hypo-osmolality and hyponatremia; R56.9 Unspecified convulsions; G20 Parkinson's disease; R13.10 Dysphagia, unspecified; I10 Essential (primary) hypertension; F32.9 Major depressive disorder, single episode, unspecified; R53.1 Weakness; B34.9 Viral infection, unspecified; G62.9 Polyneuropathy, unspecified; M19.90 Unspecified osteoarthritis, unspecified site; Z88.5 Allergy status to narcotic agent; Z88.0 Allergy status to penicillin; Z88.8 Allergy status to other drugs, medicaments and biological substances; Z95.0 Presence of cardiac pacemaker
CPT/HCPCS: 36415-UA; 71010-TC; 80048-TC; 80164-TC; 85007-TC; 85027-TC; 87070; 90779; 93005; 94640; 94760; J1644; J1956; J7042; J7613; Z7610